=== PATIENT | male | born 1985 | race Caucasian/White ===

== ENCOUNTER 2020-11-24 10:00 | Emergency (ER) | payer SELFPAY ==
[~2020-11-24] VITALS: Ht 172.7 cm; Wt 68.0 kg
[2020-11-24] MEDS ORDERED: diphenhydrAMINE 50 MG/1 ML VIAL IM ONE (10:15)
[2020-11-24] MEDS ORDERED: LORAZEPAM 2 MG/1 ML VIAL IM ONE (10:15)
[2020-11-24] MEDS ORDERED: HALOPERIDOL LACTATE 5 MG/1 ML VIAL IM ONE (10:15)
[2020-11-24] MEDS ORDERED: diphenhydrAMINE 50 MG/1 ML VIAL ONE (10:26)
[2020-11-24] MEDS ORDERED: LORAZEPAM 2 MG/1 ML VIAL ONE (10:27)
[2020-11-24] MEDS ORDERED: HALOPERIDOL LACTATE 5 MG/1 ML VIAL ONE (10:27)
[2020-11-24] MEDS ORDERED: KETOROLAC TROMETHAMINE 30 MG INJ IVP ONE (11:00)
[2020-11-24 11:50] LABS: BASOPHILS # (AUTO) 0.2 K/uL (0.0-8.0); BASOPHILS % (AUTO) 2.3 % (0.0-2.0); EOSINOPHILS # (AUTO) 0.1 K/uL (0.0-0.7); EOSINOPHILS % (AUTO) 0.7 % (0.0-7.0); HEMATOCRIT 37.2 % (36.7-47.1); HEMOGLOBIN 12.7 g/dL (12.5-16.3); LYMPHOCYTES # (AUTO) 1.1 K/uL (20.0-40.0); LYMPHOCYTES % (AUTO) 10.6 % (20.5-51.5); MEAN CORPUSCULAR HEMOGLOBIN 31.7 uug (23.8-33.4); MEAN CORPUSCULAR HGB CONC 34 g/dL (32.5-36.3); MEAN CORPUSCULAR VOLUME 92.6 fL (73.0-96.2); MONOCYTES # (AUTO) 0.9 K/uL (2.0-10.0); MONOCYTES % (AUTO) 8.4 % (0.0-11.0); NEUTROPHILS # (AUTO) 8.1 K/uL (1.8-8.9); PLATELET COUNT (AUTO) 293 K/uL (152-348); RED BLOOD CELL COUNT(AUTO) 4.02 MIL/uL (4.06-5.63); WHITE BLOOD COUNT (AUTO) 10.4 K/uL (3.6-10.2)
[2020-11-24 11:56] LABS: CARBON DIOXIDE 27 mmol/L (21-32); CHLORIDE 107 mmol/L (98-107); CREATININE 0.9 mg/dL (0.6-1.3); GLUCOSE 101 mg/dL (74-106); POTASSIUM 3.8 mmol/L (3.5-5.1); UREA NITROGEN, BLOOD 14 mg/dL (7-18)
[2020-11-24 12:02] LABS: ALANINE AMINOTRANSFERASE 34 U/L (16-63); ALKALINE PHOSPHATASE 68 U/L (50-136); ASPARTATE AMINOTRANSFERASE 35 U/L (15-37); BILIRUBIN,DIRECT 0.2 mg/dL (0.0-0.2); BILIRUBIN,TOTAL 0.4 mg/dL (0.2-1.0)
[2020-11-24 12:06] LABS: ACETAMINOPHEN < 2.0 ug/mL (10-30)
[2020-11-24 12:09] LABS: THYROID STIMULATING HORMONE 0.698 mIU/mL (0.358-3.740)
[2020-11-24 12:47] LABS: ETHANOL < 3 MG/DL (0-0)
[2020-11-24] MEDS ORDERED: SILVER SULFADIAZINE 1% CREAM 50 GM TP ONE (16:15)
[2020-11-24] MEDS ORDERED: SILVER SULFADIAZINE 1% CREAM 25 GM TUBE TP ONE (16:20)
--- NOTE | 2020-11-24 17:30 | NUR ---
Pt sleeping in bed, arouses easily now, no complaints. Pt now gave us his name and birthday, fell back asleep quickly. aware.
--- NOTE | 2020-11-24 19:52 | NUR ---
Patient asleep, open eyes when spoken to but closes eyes again and pulling blanket over his head. No acute distress noted. Will monitor.
--- NOTE | 2020-11-24 22:10 | NUR ---
pt eloped from facility, took all belongings, ambulated without difficulty, refused ACI, DR. JIMENEZ aware.
== END 2020-11-24 22:10 | disposition left against medical advice (07) ==
LOC: ER 10:00 → EDBD 10:00 → ER 22:10
DX: S09.90XA Unspecified injury of head, initial encounter (principal); S02.2XXA Fracture of nasal bones, initial encounter for closed fracture; Y04.2XXA Assault by strike against or bumped into by another person, initial encounter; Y93.9 Activity, unspecified; Y92.89 Other specified places as the place of occurrence of the external cause; Z59.0 Homelessness; R00.0 Tachycardia, unspecified; M48.02 Spinal stenosis, cervical region; M25.78 Osteophyte, vertebrae; M50.33 Other cervical disc degeneration, cervicothoracic region; M48.03 Spinal stenosis, cervicothoracic region
CPT/HCPCS: 36415; 70450; 71045; 72125; 80048; 80076; 80299; 80320; 82140; 84443; 84484; 85025; 85730; 93005; 96372 ×2; 99285; J1200; J1630; J2060; 70030-TC; A4663; G0480